=== PATIENT | male | born 1965 | race Caucasian/White ===

== ENCOUNTER 2018-10-16 21:16 | Emergency (ER) | payer OTHER ==
[2018-10-16 21:33] VITALS: TEMP 97.4
[2018-10-16] MEDS ORDERED: PROPARACAINE 0.5% OPHTH DROPS 15 ML BTL RIGHT EYE STA (21:53)
[2018-10-16] MEDS ORDERED: TOBRAMYCIN 0.3% OPHTH OINT 3.5 GM TUBE RIGHT EYE STA (22:21)
--- NOTE | 2018-10-16 22:23 | ED ---
Eye Problem HPI - General Chief complaint: Eye Problems Stated complaint: Eye Problems Time Seen by Provider: 10/16/18 21:53 Source: patient Mode of arrival: ambulatory Limitations: no limitations - History of Present Illness Initial comments: 53-year-old male patient presents to the emergency department today for evaluation of foreign body to the right eye. Patient states just prior to arrival he was grinding a kvng trailer. Patient states he was wearing safety glasses however he felt something fly into his eye. Patient states he did attempt to flush this out but it did not help. Patient denies any difficulty with his vision. He denies any drainage from the eye. Patient states that upon arrival here he started to have discomfort to the eye. He denies any other injuries or concerns. He is unsure when his last tetanus vaccine was administered. - Related Data Allergies Allergy/AdvReac Type Severity Reaction Status Date / Time No Known Allergies Allergy Verified 10/16/18 21:33 Review of Systems ROS Statement: Those systems with pertinent positive or pertinent negative responses have been documented in the HPI. ROS Other: All systems not noted in ROS Statement are negative. Past Medical History Past Medical History: No Reported History History of Any Multi-Drug Resistant Organisms: None Reported Past Surgical History: No Surgical Hx Reported Past Psychological History: No Psychological Hx Reported Smoking Status: Current every day smoker Past Alcohol Use History: Occasional Past Drug Use History: Marijuana General Exam Limitations: no limitations General appearance: alert, in no apparent distress, other (Physical well- developed, well-nourished adult male patient in no acute distress. Vital signs upon presentation are temperature 97.4F, pulse 74, respirations 18, blood pressure 125/86, pulse ox 98% on room air.) Eye exam: Present: PERRL, EOMI, other (Evidence for through metallic foreign bodies noted to the right cornea. No rust ring noted. Landeros lamp examination with fluorescein stain was performed and showed no evidence for corneal or subconjunctival abrasion. No evidence of globe injury.). Absent: normal shahana earance, scleral icterus, conjunctival injection, periorbital swelling ENT exam: Present: normal exam, normal oropharynx, mucous membranes moist Respiratory exam: Present: normal lung sounds bilaterally. Absent: respiratory distress, wheezes, rales, rhonchi, stridor Cardiovascular Exam: Present: regular rate, normal rhythm, normal heart sounds. Absent: systolic murmur, diastolic murmur, rubs, gallop, clicks Neurological exam: Present: alert, oriented X3, CN II-XII intact Psychiatric exam: Present: normal affect, normal mood Skin exam: Present: warm, dry, intact, normal color. Absent: rash Course Vital Signs 10/16/18 10/16/18 21:30 22:46 Temperature 97.4 F L Pulse Rate 74 78 Respiratory 18 20 Rate Blood Pressure 125/86 130/79 O2 Sat by Pulse 98 96 Oximetry Medical Decision Making - Medical Decision Making 53-year-old male patient presents the emergency department today for evaluation of foreign body to the right eye. Physical examination did reveal 3 metallic foreign bodies noted to the right cornea. Foreign bodies were removed utilizing Kristy brush. Patient was updated on his tetanus vaccine. He was given tobramycin ophthalmic ointment for infection prevention. He is instructed to follow-up with graphite mill operator for recheck in 1-2 days. Return parameters were discussed in detail. He verbalizes understanding and agrees with this plan. Disposition Clinical Impression: Foreign body of right eye Disposition: HOME SELF-CARE Condition: Good Instructions (If sedation given, give patient instructions): Tobramycin (Into the eye), Eye Foreign Body (ED) Additional Instructions: Use ointment 4 times daily while awake. Apply 1 cm ribbon to the lower eyelid. Follow-up with graphite mill operator for recheck if her symptoms aren't improved over the next 1-2 days. Follow-up through primary care physician for recheck in 1-2 days. Return to the emergency department immediately for any new, worsening, or concerning symptoms. Is patient prescribed a controlled substance at d/c from ED?: No Referrals: Carson Del Toro MD [STAFF PHYSICIAN] - 1-2 days Time of Disposition: 22:22
[2018-10-16] MEDS: DIPH,PERTUS(ACELL)TETVAC-LF 0.5 ML VIAL IM ONE ×2 (22:39→22:48)
[2018-10-16 22:47] VITALS: BP 130/79; PULSE 78; RESP 20
[2018-10-16] MEDS ORDERED: DIPH,PERTUS(ACELL)TETVAC-LF 0.5 ML VIAL IM ONE (22:49)
== END 2018-10-16 23:10 | disposition home or self-care (01) ==
LOC: EC 21:16
DX: T15.01XA Foreign body in cornea, right eye, initial encounter (principal); F17.200 Nicotine dependence, unspecified, uncomplicated; Z23 Encounter for immunization; Z53.8 Procedure and treatment not carried out for other reasons; Y93.89 Activity, other specified; Y92.009 Unspecified place in unspecified non-institutional (private) residence as the place of occurrence of the external cause
CPT/HCPCS: 65220; 90471; 90715; 99283

== ENCOUNTER 2018-10-20 12:09 | Emergency (ER) | payer OTHER ==
[2018-10-20 12:28] VITALS: RESP 18
--- NOTE | 2018-10-20 12:38 | ED ---
General Adult HPI - General Chief complaint: Eye Problems Stated complaint: Fb in eye Time Seen by Provider: 10/20/18 12:28 Source: patient, family Mode of arrival: ambulatory Limitations: no limitations - History of Present Illness Initial comments: Dictation was produced using [employer] dictation software. please excuse any grammatical, word or spelling errors. Chief Complaint: 53-year-old male presents with persistent right eye symptoms. History of Present Illness: Patient's 53-year-old male. Patient was seen here in emergency department 4 days ago. The day he was seen 4 days ago he was metal grinding with safety glasses. Patient was evaluated for same testing was performed and it revealed 3 metallic foreign bodies. For by his removed using a brush her tetanus was updated. Patient was told to follow-up with ophthalmology however he was not able to do so given the weekend. Patient reports that he still feels as though he has foreign body as high. He feels like it's under his eyelid. He reports that his vision is getting worse. The ROS documented in this emergency department record has been reviewed and confirmed by me. Those systems with pertinent positive or negative responses have been documented in the HPI. All other systems are other negative and/or noncontributory. PHYSICAL EXAM: General Impression: Alert and oriented x3, not in acute distress HEENT: Normocephalic atraumatic, extra-ocular movements intact, pupils equal and reactive to light bilaterally, mucous membranes moist. Ophthalmologic: No pupillary defect, pupils are round and accommodating to light., Conjunctivitis, excessive eye watering Cardiovascular: Heart regular rate and rhythm, S1&S2 audible, no murmurs, rubs or gallops Chest: Lungs clear to auscultation bilaterally, no rhonchi, no wheeze, no rales Abdomen: Bowel sounds present, abdomen soft, non-tender, non-distended, no organomegaly Musculoskeletal: Pulses present and equal in all extremities, no peripheral edema Motor: no focal deficits noted Neurological: CN II-XII grossly intact, no focal motor or sensory deficits noted Skin: Intact with no visualized rashes Psych: Normal affect and mood ED course: 53-year-old presents with worsening eye symptoms. vital signs upon arrival are within acceptable limits.CT of the orbits was performed without any findings of acute foreign bodies. Interiano testing was performed showing no foreign bodies. Eyelids were everted showing no foreign bodies. Discussed patient case with Dr. Trevino of ophthalmology who recommends erythromycin ointment be changed to daily at bedtime and ciprofloxacin drops UID. He is also told to follow-up in the ophthalmology clinic tomorrow morning after 8 AM. - Related Data Previous Rx's Medication Instructions Recorded Ciprofloxacin Ophth Soln [Cipro 1 drops RIGHT EYE QID #1 bottle 10/20/18 0.3% Ophth Soln] Allergies Allergy/AdvReac Type Severity Reaction Status Date / Time No Known Allergies Allergy Verified 10/20/18 12:42 Review of Systems ROS Statement: Those systems with pertinent positive or pertinent negative responses have been documented in the HPI. ROS Other: All systems not noted in ROS Statement are negative. Past Medical History Past Medical History: No Reported History History of Any Multi-Drug Resistant Organisms: None Reported Past Surgical History: No Surgical Hx Reported Past Psychological History: No Psychological Hx Reported Smoking Status: Current every day smoker Past Alcohol Use History: Occasional Past Drug Use History: Marijuana General Exam Limitations: no limitations Course Vital Signs 10/20/18 12:24 Temperature 98.5 F Pulse Rate 80 Respiratory 18 Rate Blood Pressure 118/81 O2 Sat by Pulse 96 Oximetry Disposition Clinical Impression: Conjunctivitis Disposition: HOME SELF-CARE Condition: Good Instructions (If sedation given, give patient instructions): Eye Foreign Body (ED) Prescriptions: Ciprofloxacin Ophth Soln [Cipro 0.3% Ophth Soln] 1 drops RIGHT EYE QID #1 bottle Is patient prescribed a controlled substance at d/c from ED?: No Referrals: None,Stated [Primary Care Provider] - 1-2 days Meir Trevino MD [STAFF PHYSICIAN] - 1-2 days Time of Disposition: 14:46
--- NOTE | 2018-10-20 13:16 | CT ---
EXAMINATION TYPE: CT orbits wo con DATE OF EXAM: 10/20/2018 COMPARISON: None. HISTORY: FB in eye CT DLP: 273.6 mGycm Automated exposure control for dose reduction was used. FINDINGS: Soft tissues about the right are unremarkable. No radiopaque foreign body is identified. Th ere is ethmoidal mucosal disease in the anterior ethmoid air cells. The bony orbit is intact. No meta llic foreign body is seen. IMPRESSION: 1. NO RADIOPAQUE FOREIGN BODY IDENTIFIED. 2. MILD, CHRONIC ETHMOIDAL SINUS MUCOSAL DISEASE.
[2018-10-20] MEDS ORDERED: PROPARACAINE 0.5% OPHTH DROPS 15 ML BTL RIGHT EYE STA (14:28)
[2018-10-20 15:15] VITALS: BP 121/78; PULSE 82; TEMP 98
== END 2018-10-20 14:58 | disposition home or self-care (01) ==
LOC: EC 12:09
DX: H10.9 Unspecified conjunctivitis (principal); F17.200 Nicotine dependence, unspecified, uncomplicated
CPT/HCPCS: 70480; 99283

== ENCOUNTER 2021-05-17 17:19 | Emergency (ER) | payer OTHER ==
[2021-05-17] MEDS ORDERED: Alteplase PER PHARMACY Stroke 1 EACH MISC MISCELLANE PRN (17:36)
[2021-05-17 17:39] VITALS: RESP 18
[2021-05-17] MEDS ORDERED: ALTEPLASE 60 MG in EMPTY BAG 1 BAG IV STA (17:40)
[2021-05-17] MEDS ORDERED: ALTEPLASE BOLUS FOR STROKE 7 MG in EMPTY SYRINGE 1 SYR IV STA (17:41)
[2021-05-17 17:45] LABS: Glucose,Whole Blood 101 mg/dL (75-99)
--- NOTE | 2021-05-17 17:47 | CT ---
EXAMINATION TYPE: CT brain wo con for TPA DATE OF EXAM: 05/17/2021 COMPARISON: None HISTORY: cva CT DLP: 1148.2 mGycm Automated exposure control for dose reduction was used. The ventricles and sulci appear normal. There is no mass effect nor midline shift. There is no sign o f intracranial hemorrhage. There is some subtle hypodensity in the left posterior occipital lobe. The calvarium is intact. There is some hyperostosis of the calvarium. Skull base is intact. IMPRESSION: Subtle left occipital hypodensity could relate to an infarct. This measures approximately 2.5 cm. No hemorrhage.
[2021-05-17 17:56] LABS: Basophils # (A) 0.1 k/uL (0-0.2); Basophils % (A) 0 %; Eosinophils # (A) 0.3 k/uL (0-0.7); Eosinophils % (A) 2 %; HCT 48.2 % (39.0-53.0); HGB 16.4 gm/dL (13.0-17.5); Lymphocytes # (A) 2.7 k/uL (1.0-4.8); Lymphocytes % (A) 15 %; MCH 30.6 pg (25.0-35.0); MCV 89.8 fL (80.0-100.0); Mean Platelet Volume 9.1; Monocytes # (A) 0.8 k/uL (0-1.0); Monocytes % (A) 4 %; Neutrophils # (A) 13.5 k/uL (1.3-7.7); Neutrophils % (A) 77 %; Platelet Count 219 k/uL (150-450); RBC 5.37 m/uL (4.30-5.90); RDW 12.8 % (11.5-15.5); WBC 17.4 k/uL (3.8-10.6)
--- NOTE | 2021-05-17 17:56 | CT ---
EXAMINATION TYPE: CT angio head neck DATE OF EXAM: 05/17/2021 COMPARISON: None HISTORY: cva CT DLP: 480 mGycm Automated exposure control for dose reduction was used. CONTRAST: Performed with IV Contrast, patient injected with 65cc mL of Isovue 370. Images obtained from the aortic arch to the vertex of the brain with IV contrast. There are 3-D post processed images. There is normal branching pattern of the great vessels on the aortic arch. There is arterial flow in both subclavian arteries. Thoracic aorta is atheromatous. There is arterial flow in the common internal and external carotid arteries bilaterally. There is sig nificant plaque formation and subtotal occlusion of the left proximal internal carotid artery. There is mild plaque at the right carotid artery bifurcation with lumen narrowing less than 20%. There is a rterial flow in both vertebral arteries. There is no evidence of carotid or vertebral artery aneurysm or dissection. There is arterial flow in the vertebrobasilar artery system. There is arterial flow in the anterior m iddle and posterior cerebral arteries bilaterally. There is abrupt termination of the mid left middle cerebral artery near the bifurcation. I see no evidence of intracranial aneurysm or neovascularity. There is no mass effect. There is raquel l enhancement of the venous sinuses. There is grade white matter hypodensity in the left posterior te mporal lobe and occipital lobe that measures 4 x 3 cm. 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 Stenosis probably more than 95% . There is thrombosis of the left middle cerebral artery proximally. There is some cortical hypodensity left posterior temporal lobe and occipital lobe suggestive of acute or subacute infarct.
[2021-05-17 18:08] LABS: ALT 17 U/L (4-49); AST 21 U/L (17-59); African American GFR (CKD) >90 (>60 ml/min/1.73 sqM); Albumin 4.2 g/dL (3.5-5.0); Alkaline Phosphatase 98 U/L (38-126); Anion Gap 9 mmol/L; Blood Urea Nitrogen 18 mg/dL (9-20); Calcium 9.4 mg/dL (8.4-10.2); Carbon Dioxide 20 mmol/L (22-30); Chloride 106 mmol/L (98-107); Glucose 102 mg/dL (74-99); Non-African American GFR(CKD) >90 (>60 ml/min/1.73 sqM); Potassium 4.3 mmol/L (3.5-5.1); Sodium 135 mmol/L (137-145); Total Bilirubin 0.4 mg/dL (0.2-1.3)
[2021-05-17 18:14] LABS: INR 0.9 (<1.2); Partial Thromboplastin Time 22.5 sec (22.0-30.0); Prothrombin Time 10.2 sec (9.0-12.0)
--- NOTE | 2021-05-17 18:16 | ED ---
Neuro HPI - General Chief Complaint: Neuro Symptoms/Deficit Stated Complaint: Stroke Time Seen by Provider: 05/17/21 17:19 Source: patient, EMS, RN notes reviewed Mode of arrival: EMS Limitations: altered mental status - History of Present Illness Is the patient presenting with stroke symptoms?: Yes Initial Comments: 56-year-old male with a benign past medical history who had the sudden onset around 1530 p.m. today of slurred speech and right facial droop and right upper extremity weakness. Patient is dominant left-handed. He was awake and alert able to assist paramedics and getting into the ampulla so he did seem to fall toward the right when he try to walk. He denied any headache loss of vision fevers chills nausea vomiting sweats or other symptoms he has no prior history of stroke no known heart or lung disease. He currently does not take any medication. - Related Data Home Medications: Previous Rx's Medication Instructions Recorded Ciprofloxacin Ophth Soln [Cipro 1 drops RIGHT EYE QID #1 bottle 10/20/18 0.3% Ophth Soln] Allergies/Adverse Reactions: Allergies Allergy/AdvReac Type Severity Reaction Status Date / Time No Known Allergies Allergy Verified 10/20/18 12:42 Review of Systems ROS Statement: Those systems with pertinent positive or pertinent negative responses have been documented in the HPI. ROS Other: All systems not noted in ROS Statement are negative. General Exam - General Exam Comments Initial Comments: This is a well-developed well-nourished awake alert oriented times female he does demonstrate expressive aphasia Limitations: altered mental status, physical limitation General appearance: alert, anxious Head exam: Present: atraumatic, normocephalic, normal inspection Eye exam: Present: normal appearance, PERRL, EOMI. Absent: scleral icterus, conjunctival injection, periorbital swelling ENT exam: Present: other (Rate facial asymmetry) Neck exam: Present: normal inspection, full ROM, other (No overt stridor JVD or bruits) Respiratory exam: Present: normal lung sounds bilaterally. Absent: respiratory distress, wheezes, rales, rhonchi, stridor Cardiovascular Exam: Present: regular rate, normal rhythm, normal heart sounds. Absent: systolic murmur, diastolic murmur, rubs, gallop, clicks GI/Abdominal exam: Present: soft, normal bowel sounds. Absent: distended, tenderness, guarding, rebound, rigid Rectal exam: Present: deferred Extremities exam: Present: normal inspection, other (Right upper extremity weakness very diminished foreign exchange clerk strength on the right upper extremity right lower extremity appears be within normal limits). Absent: full ROM Back exam: Present: normal inspection, full ROM Neurological exam: Present: alert, motor sensory deficit. Absent: CN II-XII intact Psychiatric exam: Present: anxious Skin exam: Present: warm, dry, intact, normal color. Absent: rash Stroke MDM - Lab Data Result diagrams: 05/17/21 17:46 Lab Results 05/17/21 05/17/21 Range/Units 17:35 17:46 WBC 17.4 H (3.8-10.6) k/uL RBC 5.37 (4.30-5.90) m/uL Hgb 16.4 (13.0-17.5) gm/dL Hct 48.2 (39.0-53.0) % MCV 89.8 (80.0-100.0) fL MCH 30.6 (25.0-35.0) pg MCHC 34.0 (31.0-37.0) g/dL RDW 12.8 (11.5-15.5) % Plt Count 219 (150-450) k/uL MPV 9.1 Neutrophils % 77 % Lymphocytes % 15 % Monocytes % 4 % Eosinophils % 2 % Basophils % 0 % Neutrophils # 13.5 H (1.3-7.7) k/uL Lymphocytes # 2.7 (1.0-4.8) k/uL Monocytes # 0.8 (0-1.0) k/uL Eosinophils # 0.3 (0-0.7) k/uL Basophils # 0.1 (0-0.2) k/uL POC Glucose (mg/dL) 101 H (75-99) mg/dL POC Glu Staff Development Coordinator Rn ID Yohannes Francois - NIH Stroke Scale 1a. Level of Consciousness: (0) alert 1b. LOC Questions: (0) answers correctly 1c. LOC Commands: (0) performs tasks correctly 2. Best Gaze: (0) normal 3. Visual: (0) no visual loss 4. Facial Palsy: (1) minor paralysis 5a. Motor Arm Left: (0) no drift 5b. Motor Arm Right: (1) drift 9. Best Language: (2) severe aphasia 10. Dysarthria: (1) mild/moderate dysarthria - Thrombolytic Inclusion/Exclusion Thrombolytic Inclusion Criteria: Symptom Onset < 4.5 h, NIH Stroke Scale Deficit, Negative CT Scan for ICH, Age 18 or Older, Glucose of 50-400mg/dl - Medical Decision Making Patient has essentially no change thus far is a candidate for TPA patient will be given TPA in the transported to [facility] for interventional evaluation by Dr. Mcneill. Patient be transported by EMS. - EKG Data -: EKG Interpreted by Me EKG shows normal: sinus rhythm (Normal sinus rhythm a 73. Interval 136 QRS duration 80 QT since QTC 386/[address]-T wave changes) Past Medical History Past Medical History: No Reported History History of Any Multi-Drug Resistant Organisms: None Reported Past Surgical History: No Surgical Hx Reported Past Psychological History: No Psychological Hx Reported Smoking Status: Current every day smoker Past Alcohol Use History: Occasional Past Drug Use History: Marijuana Course Vital Signs 05/17/21 17:35 Temperature 98.6 F Pulse Rate 84 Respiratory 18 Rate Blood Pressure 142/93 O2 Sat by Pulse 98 Oximetry - Reevaluation(s) Reevaluation #1: 05/17/21 18:09 Patient initially scored and a NIH of 5. A code stroke was called I did discuss case with Dr. Mcneill. Patient did have a CAT scan done of the head and neck with and without contrast. Critical Care Time Critical Care Time: Yes Total Critical Care Time: 39 Critical Care Time: Critical care time includes initial presentation with history physical labs x- rays multiple reevaluation the patient multiple discussions with the patient and with the interventional staff. Documentation the above. Discussion with paramedics upon arrival and also before transfer. Disposition Clinical Impression: Cerebrovascular accident (CVA) Disposition: OTHER INSTITUTION NOT DEFINED Condition: Serious Is patient prescribed a controlled substance at d/c from ED?: No Referrals: None,Stated [Primary Care Provider] - 1-2 days - Out of Hospital Transfer - Req. Specs Out of Hospital Transfer - Requested Specifics: Neurological ICU
[2021-05-17] MEDS ORDERED: SODIUM CHLORIDE 0.9% 50 ML MINI-BAG IV ONE (18:40)
[2021-05-17 19:59] VITALS: BP 136/79; PULSE 12; TEMP 98.3
== END 2021-05-17 18:34 | disposition other institution (70) ==
LOC: EC 17:19
DX: I63.9 Cerebral infarction, unspecified (principal); F17.200 Nicotine dependence, unspecified, uncomplicated; R29.705 NIHSS score 5; Z20.822 Contact with and (suspected) exposure to COVID-19
CPT/HCPCS: 36415; 93005; 80053; 84484; 85025; 85610; 85730; 87635; 70496; 70450; 70498; 99291; 37195; J2997; Q9967

== ENCOUNTER 2022-02-01 19:19 | Emergency (ER) | payer OTHER ==
[2022-02-01 19:25] VITALS: BP 134/82; PULSE 83; RESP 20; TEMP 98.2
[2022-02-01] MEDS ORDERED: CEPHALEXIN 500 MG CAP PO STA (20:03)
--- NOTE | 2022-02-01 20:05 | ED ---
Skin/Abscess/FB HPI - General Chief complaint: Skin/Abscess/Foreign Body Stated complaint: Right hand infection Time Seen by Provider: 02/01/22 19:39 Source: patient, family Mode of arrival: ambulatory Limitations: no limitations - History of Present Illness Initial comments: This 56-year-old male presents with a complaint of some swelling and redness and slight purulent drainage to his right hand. He states that he scraped it 2 days ago and it has progressively worsened. He is only minimal pain. He denies any significant trauma or injury to the right hand. No other complaints or modifying factors. Symptoms. Symptoms severity is minimal. - Related Data Previous Rx's Medication Instructions Recorded Ciprofloxacin Ophth Soln [Cipro 1 drops RIGHT EYE QID #1 bottle 10/20/18 0.3% Ophth Soln] Cephalexin [Keflex] 500 mg PO Q8HR #30 cap 02/01/22 Allergies Allergy/AdvReac Type Severity Reaction Status Date / Time No Known Allergies Allergy Verified 02/01/22 19:25 Review of Systems ROS Statement: Those systems with pertinent positive or pertinent negative responses have been documented in the HPI. ROS Other: All systems not noted in ROS Statement are negative. Past Medical History Past Medical History: CVA/TIA History of Any Multi-Drug Resistant Organisms: None Reported Past Surgical History: No Surgical Hx Reported Additional Past Surgical History / Comment(s): stent left carotid Past Psychological History: No Psychological Hx Reported Smoking Status: Current every day smoker Past Alcohol Use History: Occasional Past Drug Use History: Marijuana General Exam Limitations: no limitations General appearance: alert, in no apparent distress Extremities exam: Present: full ROM Psychiatric exam: Present: normal affect, normal mood Skin exam: Present: warm, other (There is a small scabbed lesion over the ulnar aspect of the dorsal aspect of the right hand over the fifth metacarpal. There is some slight erythema noted. There is some mild purulence with expression from the wound. There is no fluctuance identified. There is no lymphangitis identified.) Course Vital Signs 02/01/22 19:20 Temperature 98.2 F Pulse Rate 83 Respiratory 20 Rate Blood Pressure 134/82 O2 Sat by Pulse 98 Oximetry Medical Decision Making - Medical Decision Making The patient was seen and examined. A culture was taken from the wound. It is felt as though the patient is stable for outpatient treatment for the wound. He'll be placed on antibiotics. He understands and agrees with this plan and leaves in no distress. Disposition Clinical Impression: Abscess, Cellulitis Disposition: HOME SELF-CARE Condition: Good Instructions (If sedation given, give patient instructions): Abscess (ED) Prescriptions: Cephalexin [Keflex] 500 mg PO Q8HR #30 cap Is patient prescribed a controlled substance at d/c from ED?: No Referrals: None,Stated [Primary Care Provider] - 1-2 days Time of Disposition: 20:04
== END 2022-02-01 20:30 | disposition home or self-care (01) ==
LOC: EC 19:19
DX: L03.113 Cellulitis of right upper limb (principal); L02.511 Cutaneous abscess of right hand; Z86.73 Personal history of transient ischemic attack (TIA), and cerebral infarction without residual deficits; F17.200 Nicotine dependence, unspecified, uncomplicated
CPT/HCPCS: 87070; 87205; 99282